=== PATIENT | female | born 1980 | race Caucasian/White ===

== ENCOUNTER 2017-11-01 09:44 | Emergency (ER) | payer OTHER ==
--- NOTE | 2017-11-01 10:38 | EDPHY ---
H & P Stated Complaint: Works @[employer];scratched by one of their cats on L ear; rabies UTD Time Seen by Provider: 11/01/17 10:37 HPI/ROS: HPI: This is a 37-year-old female who presents with Chief Complaint: Works @[employer];scratched by one of their cats on L ear; rabies UTD Location:left ear lobe Quality: scratch Duration: Prior to arrival Signs and Symptoms: + bleeding, no radiation, no numbness, no weakness, no tingling, no LOC, no decreased range of motion, no swelling, no pain, no fever Timing: Acute Severity: Mild Context: Patient has been working at the [employer] for the last 18 months presents with complaints of one of the cats scratching the left side of her cheek as well as her left earlobe. Her Tetanus up-to-date. Cat was vaccinated and up-to-date on rabies. Denies LOC/head injury/neck pain/dizziness/nausea/ vomiting/amnesia. Modifying Factors: None Comment: ROS: see HPI Constitutional: No fever, no chills, no weight loss Eyes: No blurred vision Respiratory: No shortness of breath, no cough Cardiovascular: No chest pain Gastrointestinal: No nausea, no vomiting no diarrhea Genitourinary: No dysuria Extremities: No myalgias Neurologic: No weakness, no numbness Skin: No rashes Hematologic: No bruising, no bleeding MEDICAL/SURGICAL/SOCIAL HISTORY: Medical history: Hypothyroidism, depression Surgical history: Denies Social history: Nonsmoker. CONSTITUTIONAL: Extremely polite and cooperative adult female, awake and alert , no obvious distress HEENT: Atraumatic and normocephalic, PERRL, EOMI. Nares patent; no rhinorrhea; no nasal mucosal edema. Left external ear shows a v-shaped superficial laceration-no active bleeding. Tympanic membranes clear. Oropharynx clear, no exudate and moist pink mucosa. Airway patent. No lymphadenopathy. No meningismus. Cardiovascular: Normal S1/S2, regular rate, regular rhythm, without murmur rub or gallop. PULMONARY/CHEST: Symmetrical and nontender. Clear to auscultation bilaterally. Good air movement. No accessory muscle usage. ABDOMEN: Soft, nondistended, nontender, no rebound, no guarding, no peritoneal signs, no masses or organomegaly. No CVAT. EXTREMITIES: 2/2 pulses, strength 5/5, no deformities, no clubbing, no cyanosis or edema. NEUROLOGICAL: no focal neuro deficits. GCS 15. SKIN: Warm and dry, superficial abrasion noted to left temporal area; no erythema. no rash. Good capillary refill. Source: Patient Exam Limitations: No limitations - Personal History LMP (Females 10-55): 8-14 Days Ago Current Tetanus Diphtheria and Acellular Pertussis (TDAP): Yes - Medical/Surgical History Other PMH: healthy - Social History Smoking Status: Never smoked Constitutional: Initial Vital Signs Temperature (C) 36.7 C 11/01/17 09:50 Heart Rate 76 11/01/17 09:50 Respiratory Rate 16 11/01/17 09:50 Blood Pressure 108/72 11/01/17 09:50 O2 Sat (%) 100 11/01/17 09:50 O2 Delivery Mode Room Air Allergies/Adverse Reactions: Penicillins Allergy (Severe, Verified 11/01/17 09:58) Anaphylaxis Home Medications: Medication Instructions Recorded Citalopram Hydrobromide [celeXA 10 10 mg PO DAILY 11/01/17 MG] Doxycycline Hyclate 100 mg PO BID #14 tab 11/01/17 Levothyroxine [Synthroid 88 mcg 88 mcg PO DAILY06 11/01/17 (*)] Medical Decision Making Procedures: Procedure: Laceration repair. Verbal consent was obtained from the patient. The 1/8 inch V shaped, simple, superficial laceration on the left ear lobe was anesthetized in the usual fashion using 2 mL of 1% lidocaine with epinephrine. The wound was irrigated, draped and explored to its base with a gloved finger. There were no deep structures involved. No tendon injury was identified. The wound was loosely repaired with #2, 6-0 Vicryl. The procedure was performed by myself. ED Course/Re-evaluation: Patient has a penicillin allergy; given prescription for doxycycline Tetanus is up-to-date Rabies immunoglobulin not indicated Abrasions cleaned and irrigated copiously Loose closure provided with absorbable sutures x 2 to obtain the best cosmesis for the patient No signs of neurovascular compromise/tenting of skin/compartment syndrome/ extremities and joints examined above and below area of concern and are neurovascularly intact. This patient was seen under the supervision of my secondary supervising physician. I evaluated care for this patient independently. Discussed this patient with Dr. Keene who did not see the patient. Differential Diagnosis: Differential diagnosis includes but is not limited to abrasion, laceration,, contusion, cellulitis. Departure - Departure Disposition: Home, Routine, Self-Care Clinical Impression: Cat scratch of face Qualifiers: Encounter type: initial encounter Qualified Code(s): S00.81XA - Abrasion of other part of head, initial encounter; W55.03XA - Scratched by cat, initial encounter; W55.03XA - Scratched by cat, initial encounter Laceration of ear lobe Qualifiers: Encounter type: initial encounter Laterality: left Qualified Code(s): S01.312A - Laceration without foreign body of left ear, initial encounter Condition: Good Instructions: Cat Scratch Disease (ED) Additional Instructions: Keep the dressing dry and in place for 48 hours. After 48 hours, you may remove the dressing; wash the site daily with mild soap and water; then pat dry. Take Tylenol 650 mg every 4 hours and/or Ibuprofen 600 mg every 8 hours with food as needed for pain. Take doxycycline twice daily x7 days. An absorbable suture was used to loosely close your laceration to your earlobe. This will slowly dissolve over time. Return to the ER immediately if you experience redness, red streaks, have fevers /chills, flu like symptoms, limited range of motion, or any other symptoms that concern you. Referrals: Renetta Rausch MD [Primary Care Provider] - Follow Up Only If Needed Prescriptions: Doxycycline Hyclate 100 mg PO BID #14 tab
[2017-11-01 11:11] VITALS: BP 122/78
== END 2017-11-01 11:11 | disposition home or self-care (01) ==
PROC: 09Q1XZZ Repair Left External Ear, External Approach (ICD-10-PCS; principal; 2017-11-01)
DX: S01.312A Laceration without foreign body of left ear, initial encounter (principal); W55.03XA Scratched by cat, initial encounter

== ENCOUNTER → 2018-07-20 | Outpatient (CLI) | payer OTHER | LOC: FIMAGING 15:47 | PROVIDERS: ATTEND Family Medicine | DX: Z12.31 Encounter for screening mammogram for malignant neoplasm of breast (principal); Z80.3 Family history of malignant neoplasm of breast ==